=== PATIENT | female | born 2000 | race Caucasian/White ===

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

== ENCOUNTER 2019-09-13 11:27 | Emergency (ER) | payer BC ==
[2019-09-13 11:52] VITALS: BP 117/72
--- NOTE | 2019-09-13 12:31 | UC ---
Throat Pain/Nasal Neo HPI - HPI Summary HPI Summary: 19 year old female with PMH negative, presents with throat pain- mild, cough- productive, sinus pressure x 2-3 days. + chills, ? tactile fever. + fatigue. + vomiting with coughing at work yesterday. NO recent abx, no GI symptoms, no ear pain. 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 Negative: Dysphagia, FB Sensation, Drooling - Allergies/Home Medications Allergies/Adverse Reactions: Allergies Allergy/AdvReac Type Severity Reaction Status Date / Time No Known Allergies Allergy Verified 09/13/19 11:52 Home Medications: Home Medications FLUoxetine CAP* [Prozac CAP*] 10 mg PO DAILY 09/13/19 [History Confirmed ] PMH/Surg Hx/FS Hx/Imm Hx Previously Healthy: Yes - Surgical History Surgical History: Yes Surgery Procedure, Year, and Place: BENIGN FACIAL TUMOR REMOVED AT AGE 2 - Family History Known Family History: Positive: Unknown, Non-Contributory Negative: Renal Disease, Blood Disorder - Social History 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 Negative: Shortness Of Breath Cardiovascular: Negative: Palpitations, Chest Pain Motor: Positive: Negative Musculoskeletal: Positive: Myalgia Is Patient Immunocompromised?: No Physical Exam Triage Information Reviewed: Yes Appearance: No Pain Distress, Well-Nourished, Ill-Appearing - mild Vital Signs: Initial Vital Signs Temp 99.3 F 09/13/19 11:48 Pulse 115 09/13/19 11:48 Resp 18 09/13/19 11:48 BP 117/72 09/13/19 11:48 Pulse Ox 99 09/13/19 11:48 Vital Signs Reviewed: Yes Eyes: Positive: Conjunctiva Clear ENT: Positive: Pharyngeal erythema, Nasal congestion, TMs normal, Tonsillar swelling - right sided > left, Tonsillar exudate - right sided > left, Sinus tenderness - b/l max, Uvula midline. Negative: TM bulging, TM dull, TM red Neck: Positive: Supple, Nontender, No Lymphadenopathy. Negative: Nuchal Rigidity, Enlarged Nodes @ Respiratory: Positive: Chest non-tender, Lungs clear, Normal breath sounds, No respiratory distress, No accessory muscle use. Negative: Respiratory distress, Decreased breath sounds, Crackles, Rhonchi, Stridor, Wheezing Cardiovascular: Positive: RRR, No Murmur Musculoskeletal: Positive: Strength Intact Skin Exam: Normal Throat Pain/Nasal Course/Dx - Course Course Of Treatment: - Rapid Strep Negative - Antibiotics as directed - Increase fluid intake - Work note given x 2 days - Follow up within 2-3 days if no improvement. GO to ER with increased pain, decreased/ painful swallowing, fever > 102. - Over the counter medications for symptoms, such as decongestants, cough drops - Differential Dx/Diagnosis Differential Diagnosis/HQI/PQRI: Otitis Media, Pharyngitis, Sinusitis, URI Provider Diagnosis: Sinusitis Discharge ED - Sign-Out/Discharge Documenting (check all that apply): Patient Departure All imaging exams completed and their final reports reviewed: No Studies - Discharge Plan Condition: Good Disposition: HOME Prescriptions: Azithromyxin CHELLY (NF) [Z-Chelly (Zithromax) 250 mg tabs #6] 2 tab PO .TODAY, THEN 1 DAILY #6 tab Patient Education Materials: Sinusitis (ED) Forms: *Work Release Referrals: No Primary Care Phys,NOPCP [Primary Care Provider] - [facility] [Outside] Additional Instructions: - Rapid Strep Negative - Antibiotics as directed - Increase fluid intake - Work note given x 2 days - Follow up within 2-3 days if no improvement. GO to ER with increased pain, decreased/ painful swallowing, fever > 102. - Over the counter medications for symptoms, such as decongestants, cough drops. - Billing Disposition and Condition Condition: GOOD Disposition: Home - Attestation Statements Provider Attestation: Per institutional requirements, I have reviewed the chart, however, I was not consulted specifically or made aware of this patient by the midlevel provider. I did not personally evaluate, interact with , or disposition this patient.
== END 2019-09-13 12:40 | disposition home or self-care (01) ==
LOC: UCEAST 11:27
DX: J32.9 Chronic sinusitis, unspecified (principal); J02.9 Acute pharyngitis, unspecified; R05 Cough; M79.10 Myalgia, unspecified site
CPT/HCPCS: 87651; 99212; G0463